=== PATIENT | female | born 1980 | race African-American/Black ===

== ENCOUNTER 2016-08-16 13:45 | Emergency (ER) | payer SELFPAY ==
[~2016-08-16] VITALS: Ht 154.9 cm; Wt 80.7 kg
--- NOTE | 2016-08-16 15:22 | PHYS DOC ---
Past Medical History Past Medical History: No Pertinent History Past Surgical History: Alcohol Use: None Drug Use: None Adult General Chief Complaint Chief Complaint: HEADACHE HPI HPI Patient is a 35 year old female presents to the emergency department with a history of headache that it started 4 days ago. She states that it is sharp type of pain on the left side of her head. She states that she has had this for the last 4 days and has taken Tylenol ibuprofen and Excedrin without relief. That she had an interview today and this made the headache worse. Patient states that after being here for the interview she became lightheaded and dizzy she states that she's had some blurred vision. Patient states that her last menstrual period was a month ago. She states that she's had a tubal ligation. Patient denies any nausea vomiting fever or chills. Patient is neurologically intact. States she's never had a headache like this before. Patient denies photophobia, she denies phonophobia. Review of Systems Review of Systems Constitutional: Denies fever or chills [] Eyes: Denies change in visual acuity, redness, or eye pain [] HENT: Denies nasal congestion or sore throat [] Respiratory: Denies cough or shortness of breath [] Cardiovascular: No additional information not addressed in HPI [] GI: Denies abdominal pain, nausea, vomiting, bloody stools or diarrhea [] : Denies dysuria or hematuria [] Musculoskeletal: Denies back pain or joint pain [] Integument: Denies rash or skin lesions [] Neurologic: headache, denies focal weakness or sensory changes [] Endocrine: Denies polyuria or polydipsia [] Current Medications Current Medications Current Medications Medications (Trade) Dose Ordered Sig/Lv Start Time Stop Time Status Last Admin Dose Admin Diphenhydramine HCl (Benadryl) 25 mg 1X ONCE 08/16/16 15:45 08/16/16 15:46 DC 08/16/16 15:40 25 MG Ketorolac Tromethamine (Toradol Im) 60 mg 1X ONCE 08/16/16 15:45 08/16/16 15:46 DC 08/16/16 15:41 60 MG Metoclopramide HCl (Reglan) 10 mg 1X ONCE 08/16/16 15:45 08/16/16 15:46 DC 08/16/16 15:40 10 MG Allergies Allergies Allergies Coded Allergies Type Severity Reaction Last Updated Verified No Known Drug Allergies 08/16/16 No Physical Exam Physical Exam Constitutional: Well developed, well nourished, no acute distress, non-toxic appearance. [] HENT: Normocephalic, atraumatic, bilateral external ears normal, oropharynx moist, no oral exudates, nose normal. Bilateral tympanic membranes appear to be normal. Eyes: PERRLA, EOMI, conjunctiva normal, no discharge. [] Neck: Normal range of motion, no tenderness, supple, no stridor. [] Cardiovascular:Heart rate regular rhythm, no murmur [] Lungs & Thorax: Bilateral breath sounds clear to auscultation [] Skin: Warm, dry, no erythema, no rash. [] Back: No tenderness Extremities: No tenderness, no cyanosis, no clubbing, ROM intact, no edema. [] Neurologic: Alert and oriented X 3, normal motor function, normal sensory function, no focal deficits noted. Cranial nerves II through XII intact Psychologic: Affect normal, judgement normal, mood normal. [] Current Patient Data Vital Signs Vital Signs Date Time Temp Pulse Resp B/P (MAP) Pulse Ox O2 Delivery O2 Flow Rate FiO2 08/16/16 14:04 98.4 89 20 121/70 (87) 97 Room Air 98.4 EKG EKG [] Radiology/Procedures Radiology/Procedures [facility] [address] [place] [address] IMAGING REPORT Signed PATIENT: MARELY CARO ACCOUNT: [id number] : 1980 LOCATION: ER AGE: 35 SEX: F EXAM STATUS: REG ER ORD. PHYSICIAN: RADHA VILLALTA DATA POWER CONSULTANT REASON: headache for 4 days PROCEDURE: CT HEAD WO CONTRAST EXAM: CT head without contrast. HISTORY: Persistent headache. TECHNIQUE: Computed tomography of the head was performed without intravenous contrast. COMPARISON: None. FINDINGS: There is no intracranial hemorrhage. Vargas-white differentiation is preserved. The ventricles are normal in size and position. The visualized paranasal sinuses appear clear. The orbits are unremarkable. The temporal bones are unremarkable. The calvarium reveals no suspicious lesions. A prominent left occipital lymph node measures 14 x 10 mm. Another focus of soft tissue thickening along the deep tissues of the right occipital scalp measures 1.3 x 0.6 cm. IMPRESSION: 1. No acute intracranial findings. 2. Prominent left occipital lymph node. Focal soft tissue thickening along the right occipital scalp. Correlate for regional inflammation or other causes. *One or more of the following individualized dose reduction techniques were utilized for this examination: 1. Automated exposure control. 2. Adjustment of the mA and/or kV according to patient size. 3. Use of iterative reconstruction technique. DICTATED and SIGNED BY: TAMMY MORA MD DATE: 08/16/16 3550 CC: RADHA VILLALTA APRN; NO PCP; NON,STAFF ~ [] Course & Med Decision Making Course & Med Decision Making Pertinent Labs and Imaging studies reviewed. (See chart for details) CT scan shows no abnormality within the brain. It does show enlarged lymph nodes in the occipital regions. Patient will be provided with Benadryl and Reglan and here in the emergency department. Patient was instructed to have the TV chart and off in the room so that she may rest. 1640 reevaluated patient with a TV out in the room patient was resting quietly. She states that her pain is 7 out of 10. She denies any further blurred vision at this time. Patient will be discharged home. She'll be discharged home in stable condition. Recommended avoiding watching TV or any type of electronic devices such as laptop computers or text messaging. Patient was also encouraged to rest in quiet dark environment. She was also recommended to use cool packs to the forehead in the back of the neck. She is instructed to rest in a cool environment as well. Patient will be discharged home in stable condition signs and symptoms to return back to emergency department as been provided. Patient agrees with discharge instructions treatment regimens and follow-up recommendations. [] Dragon Disclaimer Dragon Disclaimer This electronic medical record was generated, in whole or in part, using a voice recognition dictation system. Departure Departure Impression: Primary Impression: Headache Disposition: HOME, SELF-CARE Condition: STABLE Referrals: NO PCP (PCP) Patient Instructions: General Headache Without Cause, [id number] Additional Instructions: CT scan of the head was negative for any abnormalities in the brain. However he do have enlarged lymph nodes in the occipital regions of your head. This is located down by the back of your neck. Lymph node enlargement may be viral related Tylenol, ibuprofen for pain and discomfort. Rest in quiet dark environment. Avoid using any type of electronic devices such as TV, laptop computers or any type of text messaging. Rest in quiet dark environment to room area Cool packs to your head and back and neck area. Follow-up through primary care physician in the next 3-5 days. Followup with neurology for headache pain in 3-5 days Return back to emergency prior signs symptoms of become more worse. RADHA VILLALTA DATA POWER CONSULTANT Aug 16, 2016 15:22
[2016-08-16] MEDS ORDERED: METOCLOPRAMIDE 10 MG TABLET. PO ONE (15:45)
[2016-08-16] MEDS ORDERED: diphenhydrAMINE HCL 25 MG CAPSULE PO ONE (15:45)
[2016-08-16] MEDS ORDERED: KETOROLAC TROMETHAMINE 60 MG/2 ML INJ. IM ONE (15:45)
[2016-08-16 16:35] VITALS: BP 112/69
== END 2016-08-16 16:53 | disposition home or self-care (01) ==
LOC: ER 13:45
DX: R51 Headache (principal); R42 Dizziness and giddiness; H53.8 Other visual disturbances
CPT/HCPCS: 70450; 96372; 99284; J1885; J8597; Q0163